=== PATIENT | male | born 1985 | race Hispanic/Latino ===

== ENCOUNTER 2021-09-29 15:13 | Emergency (ER) | payer SELFPAY ==
[2021-09-29 15:43] LABS: Absolute Lymphocytes (CBC) 2.1 K/uL (0.7-4.9); Hematocrit 43.6 % (39.6-49.0); Lymphocytes % 16.4 % (15.3-44.8); MCV 91.5 fL (80-100); MPV 7.6 fL (7.6-11.3); RBC Red Blood Cell Count 4.76 M/uL (4.33-5.43)
[2021-09-29 16:08] LABS: Albumin 4.1 g/dL (3.4-5.0); Bilirubin Total 0.7 mg/dL (0.2-1.0); Protein, Total 7.1 g/dL (6.4-8.2)
[2021-09-29 16:10] LABS: Potassium 2.9 mmol/L (3.5-5.1)
[2021-09-29] MEDS ORDERED: POTASSIUM 25 MEQ EFFERV TAB ONE (16:44)
[2021-09-29] MEDS ORDERED: POTASSIUM CL SA 10 MEQ TAB PO ONE (16:44)
--- NOTE | 2021-09-29 17:45 | EDPHYS ---
Physician Documentation [facility] Name: Cha Ortega Age: 36 yrs Sex: Male : 1985 Arrival Date: 09/29/2021 Time: 15:15 Bed 8 Private MD: ED Physician Dwight Maria HPI: 09/29 15:20 This 36 yrs old Male presents to ER via EMS with complaints of Heat Exposure. ms3 15:20 36-year-old male with no past medical history presents via down EMS for heat ms3 exhaustion. EMS states on their arrival patient was in the position with cramping of his arms legs and hands. Patient states his pain at that time was a 10/10 described as cramping. Patient states his pain is improved is currently 5/10. EMS states they administered 1500 mL of LR. Patient denies nausea, vomiting, chest pain, shortness of breath.. Onset: The symptoms/episode began/occurred just prior to arrival. Historical: - Allergies: 15:18 No Known Allergies; bp - Home Meds: 15:18 None [Active]; bp - PMHx: 15:18 None; bp - Immunization history:: Adult Immunizations up to date. - Social history:: Smoking status: Patient denies any tobacco usage or history of. ROS: 15:20 Constitutional: Negative for fever, and chills. Neck: Negative for injury, pain, and ms3 swelling, Cardiovascular: Negative for chest pain, and palpitations. Respiratory: Negative for shortness of breath, cough, wheezing, and pleuritic chest pain, Abdomen/GI: Negative for abdominal pain, nausea, vomiting, diarrhea, and constipation. 15:20 MS/extremity: Positive for cramping. 15:20 All other systems are negative. Exam: 15:20 Constitutional: This is a well developed, well nourished patient who is awake, alert, ms3 and in no acute distress. Head/Face: Normocephalic, atraumatic. Neck: Trachea midline, no cervical lymphadenopathy. Supple, full range of motion without nuchal rigidity, or vertebral point tenderness. No Meningismus. Chest/axilla: Normal chest wall appearance and motion. Nontender with no deformity. Cardiovascular: Regular rate and rhythm with a normal S1 and S2. No gallops, murmurs, or rubs. Normal PMI, no JVD. No pulse deficits. Respiratory: Lungs have equal breath sounds bilaterally, clear to auscultation and percussion. No rales, rhonchi or wheezes noted. No increased work of breathing, no retractions or nasal flaring. Abdomen/GI: Soft, non-tender, with normal bowel sounds. No distension or tympany. No guarding or rebound. No evidence of tenderness throughout. Skin: Warm, dry with normal turgor. Normal color with no rashes, no lesions, and no evidence of cellulitis. MS/ Extremity: Pulses equal, no cyanosis. Neurovascular intact. Full, normal range of motion. Psych: Awake, alert, with orientation to person, place and time. Behavior, mood, and affect are within normal limits. Vital Signs: 15:15 BP 143 / 101; Pulse 111; Resp 19; Temp 98; Pulse Ox 99% ; bp 17:00 BP 137 / 89; Pulse 97; Resp 16; Pulse Ox 100% ; bp 18:04 BP 141 / 87; Pulse 89; Resp 16; Pulse Ox 99% ; bp MDM: 15:16 Patient medically screened. ms3 15:20 Differential Diagnosis Heat exhaustion vs rhabdo vs dehydration. ms3 17:48 Data reviewed: vital signs, nurses notes, lab test result(s), and as a result, I will ms3 discharge patient. Counseling: I had a detailed discussion with the patient and/or guardian regarding: the historical points, exam findings, and any diagnostic results supporting the discharge/admit diagnosis, lab results, the need for outpatient follow up, to return to the emergency department if symptoms worsen or persist or if there are any questions or concerns that arise at home. Special discussion: I discussed with the patient/guardian in detail that at this point there is no indication for admission to the hospital. It is understood, however, that if the symptoms persist or worsen the patient needs to return immediately for re-evaluation. ED course: On reevaluation patient symptoms improved, patient is alert, no apparent distress, nontoxic, ambulatory in emergency department, tolerating p.o. . 09/29 15:18 Order name: CBC with Diff; Complete Time: 16:11 ms3 09/29 15:18 Order name: CMP; Complete Time: 16:11 ms3 09/29 15:18 Order name: CK; Complete Time: 16:11 ms3 Administered Medications: 16:30 Drug: Potassium Chloride 40 mEq Route: PO; bp 18:05 Follow up: Response: No adverse reaction bp 16:30 Drug: Potassium Effervescent Tablet 25 mEq Route: PO; bp 18:05 Follow up: Response: No adverse reaction bp Disposition Summary: 09/29/21 17:45 Discharge Ordered Location: Home ms3 Condition: Stable ms3 Diagnosis - Muscle spasm ms3 - Hypokalemia ms3 Followup: ms3 - With: Private Physician - When: 2 - 3 days - Reason: Re-evaluation by your physician Discharge Instructions: - Discharge Summary Sheet bd Forms: - Work release form bd - Medication Reconciliation Form ms3 - Thank You Letter ms3 - Antibiotic Education ms3 - Prescription Opioid Use ms3 Signatures: Dispatcher [employer] Rodrigue Armenta, RN RN Dwight De La Fuente DO DO ms3
--- NOTE | 2021-09-29 17:45 | ER ---
Nurse's Notes [facility] Name: Cha Ortega Age: 36 yrs Sex: Male : 1985 Arrival Date: 09/29/2021 Time: 15:15 Bed 8 Private MD: Diagnosis: Muscle spasm;Hypokalemia Presentation: 09/29 15:15 Chief complaint: EMS states: WORKING IN THE HEAT, MUSCLE CRAMPING. Coronavirus screen: bp At this time, the client does not indicate any symptoms associated with coronavirus-19. Ebola Screen: No symptoms or risks identified at this time. Initial Sepsis Screen: Does the patient meet any 2 criteria? HR > 90 bpm. No. Patient's initial sepsis screen is negative. Does the patient have a suspected source of infection? No. Patient's initial sepsis screen is negative. Risk Assessment: Do you want to hurt yourself or someone else? Patient reports no desire to harm self or others. Onset of symptoms was September 29, 2021. Care prior to arrival: Medication(s) given: 1.5 L LR IV initiated. 18 GA, in the left antecubital area. 15:15 Method Of Arrival: EMS: [facility] bp 15:15 Acuity: PRICE 3 bp Triage Assessment: 15:18 General: Appears distressed, uncomfortable, Behavior is calm, cooperative, appropriate bp for age. Pain: Complains of pain in GENERALIZED. EENT: No deficits noted. Neuro: Level of Consciousness is awake, alert, obeys commands, Oriented to time, situation, Appropriate for age. Cardiovascular: Rhythm is sinus tachycardia. Respiratory: No deficits noted. GI: No signs and/or symptoms were reported involving the gastrointestinal system. : No signs and/or symptoms were reported regarding the genitourinary system. Derm: No deficits noted. Musculoskeletal: Reports GENERALIZED MUSCLE CRAMP. Historical: - Allergies: 15:18 No Known Allergies; bp - Home Meds: 15:18 None [Active]; bp - PMHx: 15:18 None; bp - Immunization history:: Adult Immunizations up to date. - Social history:: Smoking status: Patient denies any tobacco usage or history of. Screenin:20 Abuse screen: Denies threats or abuse. Denies injuries from another. Nutritional bp screening: No deficits noted. Tuberculosis screening: No symptoms or risk factors identified. Fall Risk None identified. Assessment: 15:20 General: SEE TRIAGE NOTE. bp 17:00 Reassessment: Patient states symptoms have improved. bp 18:02 Reassessment: PT D/C HOME AMBULATORY, DX WITH DEHYDRATION. bp Vital Signs: 15:15 BP 143 / 101; Pulse 111; Resp 19; Temp 98; Pulse Ox 99% ; bp 17:00 BP 137 / 89; Pulse 97; Resp 16; Pulse Ox 100% ; bp 18:04 BP 141 / 87; Pulse 89; Resp 16; Pulse Ox 99% ; bp ED Course: 15:15 Patient arrived in ED. bp 15:16 Dwight Maria DO is Attending Physician. ms3 15:17 Triage completed. bp 15:18 Arm band placed on. bp 15:20 Patient has correct armband on for positive identification. Bed in low position. Call bp light in reach. Side rails up X2. 15:20 Maintain EMS IV. Dressing intact. Good blood return noted. Site clean \T\ dry. Gauge \T\ bp site: 18 GA LEFT AC. 15:24 Rodrigue Cedeno, RN is Primary Nurse. bp 15:33 CK Sent. zm 15:33 CMP Sent. zm 15:33 CBC with Diff Sent. zm 18:02 No provider procedures requiring assistance completed. IV discontinued, intact, bp bleeding controlled, No redness/swelling at site. Pressure dressing applied. Administered Medications: 16:30 Drug: Potassium Chloride 40 mEq Route: PO; bp 18:05 Follow up: Response: No adverse reaction bp 16:30 Drug: Potassium Effervescent Tablet 25 mEq Route: PO; bp 18:05 Follow up: Response: No adverse reaction bp Medication: 15:20 VIS not applicable for this client. bp Outcome: 17:45 Discharge ordered by . ms3 18:02 Discharged to home ambulatory, with family. bp 18:02 Condition: stable 18:02 Discharge instructions given to patient, Instructed on discharge instructions, follow up and referral plans. Demonstrated understanding of instructions, follow-up care. 18:05 Patient left the ED. bp Signatures: Rodrigue Cedeno, RN RN bp Dwight Maria DO DO ms3 Verónica Costello zm
[2021-09-29 18:30] VITALS: TEMP 98
[2021-09-29 18:36] VITALS: BP 141/87; O2SAT 99
== END 2021-09-29 18:05 | disposition home or self-care (01) ==
LOC: ER 15:13
DX: M62.838 Other muscle spasm (principal); E87.6 Hypokalemia
CPT/HCPCS: 36415; 80053; 82550; 85025